=== PATIENT | female | born 1960 | race Caucasian/White ===

== ENCOUNTER 2019-01-18 18:19 | Inpatient (IN) | payer OTHER ==
--- OUTSIDE RECORDS SUMMARY | 2019-01-18 18:21 | XMS REPORT ---
:1960 Author Organization [facility] Address [address] [place] [address] Care Team Providers Name Role Phone Unavailable Unavailable Unavailable Problems This patient has no known problems. Allergies, Adverse Reactions, Alerts This patient has no known allergies or adverse reactions. Medications This patient has no known medications. Results Test Description Test Time Test Comments Text Results Atomic Results Result Comments RAD, KNEE, 1 OR 2018-11-01 22:08:00 Reason for FINAL REPORT PATIENT ID: 2 VIEWS, RIGHT Exam:->chronic pain of [id number] RAD, KNEE, 1 OR right knee 2 VIEWS, RIGHT CLINICAL INDICATION: chronic pain of right knee COMPARISON: None FINDINGS: Weight-bearing frontal and lateral views of the right knee were obtained. There are degenerative changes of the right knee as evidenced by tricompartmental joint narrowing, sclerosis and small osteophytes, most pronounced at the medial compartment where there is moderate disease. There are mild degenerative changes of the lateral and patellofemoral compartments. There is no acute fracture or dislocation. There is a small suprapatellar effusion. IMPRESSION:Degenerative changes of the right knee without acute fracture or dislocation.Small suprapatellar effusion. Signed: Nkechi James MDReport Verified Date/Time: 11/01/2018 22:08:40 Reading Location: [facility] B1 C013Y CT Body Reading Room , HIP, 2 2018-11-01 22:05:00 Weight bearing FINAL REPORT PATIENT ID: VIEWS, RIGHT viewsReason for [id number] RAD, HIP, 2 Exam:->right hip pain VIEWS, RIGHT CLINICAL INDICATION: right hip pain COMPARISON: None FINDINGS: Weightbearing frontal and frog leg lateral views of the right hip were obtained There is no acute fracture or dislocation. The joint spaces are maintained. The right sacroiliac joint is patent. The sacrum is partially obscured by overlying stool and bowel gas. There are post vertebroplasty changes at L4. There is lower lumbar facet arthropathy. IMPRESSION: No acute right hip fracture or dislocation. Signed: Nkechi James Verified Date/Time: 11/01/2018 22:05:04 Reading Location: [facility] C013Y CT Body Reading Room , SPINE, 2018-11-01 22:03:00 Reason for FINAL REPORT PATIENT ID: LUMBAR, 2 OR 3 Exam:->lumbar spine [id number] RAD, SPINE, VIEWS pain LUMBAR, 2 OR 3 VIEWS CLINICAL INDICATION: lumbar spine pain COMPARISON: None FINDINGS: Frontal, lateral and coned-down lateral views of the lumbar spine were obtained. There is generalized osteopenia. There are mild compression fractures of the L2 and L4 vertebral bodies with post vertebroplasty changes. There is a mild chronic compression fracture deformity of the L1 vertebral body involving the inferior endplate. There is a mild age-indeterminate compression fracture deformity of L5 involving the superior endplate. Vertebral body alignment is maintained. There is mild multilevel degenerative disc disease as evidenced by disc space narrowing, small osteophytes and endplate sclerosis most pronounced at L1/L2 and L3/L4. There is lower lumbar facet arthropathy. The bilateral sacroiliac joints are patent. The sacrum is partially obscured by overlying stool and bowel gas. IMPRESSION: Status post L2 and L4 vertebroplasty.Mild chronic compression fracture deformity of L1.Mild age-indeterminate compression fracture deformity of L5 . Correlate with site of pain. Bone scan or MRI may be performed for evaluation as clinically warranted.Degenerative changes as described. Signed: Nkechi Jamesort Verified Date/Time: 11/01/2018 22:03:50 Reading Location: [facility] C013Y CT Body Reading Room
--- OUTSIDE RECORDS SUMMARY | 2019-01-18 18:21 | XMS REPORT | Clinical Summary ---
:1960 Author Organization [facility] Address [address] [place] [address] Care Team Providers Name Role Phone Unavailable Primary Care Provider Unavailable Allergies Not on File Medications Not on file Active Problems Not on file Encounters Date Type Specialty Care Team Description 11/01/2018 Hospital Encounter Radiology Jose Sheth MD Lumbar spine pain 11/01/2018 Hospital Encounter Radiology Jose Sheth MD Right hip pain 11/01/2018 Hospital Encounter Radiology Jose Sheth MD Chronic pain of right knee 11/01/2018 Outside Orders Central Scheduling oJse Sheth MD Right hip pain (Primary Dx); Chronic pain of right knee; Lumbar spine pain after 01/17/2018 Social History Tobacco Use Types Packs/Day Years Used Date Never Assessed Sex Assigned at Date Recorded Not on file Job Start Date Occupation Industry Not on file Not on file Not on file Travel History Travel Start Travel End No recent travel history available. Last Filed Vital Signs Not on file Plan of Treatment Not on file Procedures Procedure Name Priority Date/Time Associated Diagnosis Comments XR SPINE LUMBER 2 STAT 11/01/2018 5:45 PM Lumbar spine pain Results for this OR 3 VIEWS CDT procedure are in the results section. XR HIP RIGHT 2 VIEW STAT 11/01/2018 5:45 PM Right hip pain Results for this CDT procedure are in the results section. XR KNEE RIGHT 1 OR STAT 11/01/2018 5:45 PM Chronic pain of Results for this 2 VIEWS CDT right knee procedure are in the results section. after 01/17/2018 Results XR knee 1 or 2 views right (11/01/2018 5:45 PM CDT) Specimen Narrative Performed At FINAL REPORT [facility] RAD, KNEE, 1 OR 2 VIEWS, RIGHT CLINICAL INDICATION:chronic pain of right knee COMPARISON: None FINDINGS: [...] dislocation. There is a small suprapatellar effusion. IMPRESSION: Degenerative changes of the right knee without acute fracture or dislocation. Small suprapatellar effusion. Signed: Nkechi Ramos MD Report Verified Date/Time:11/01/2018 22:08:40 Reading Location: [facility] C013Y CT Body Reading Room Procedure Note Interface, External Ris In - 11/01/2018 10:10 PM CDT FINAL REPORT RAD, KNEE, 1 OR 2 VIEWS, RIGHT CLINICAL INDICATION: chronic pain [...] dislocation. There is a small suprapatellar effusion. IMPRESSION: Degenerative changes of the right knee without acute fracture or dislocation. Small suprapatellar effusion. Signed: Nkechi Ramos MD Report Verified Date/Time: 11/01/2018 22:08:40 Reading Location: [facility] C013Y CT Body Reading Room Performing Organization Address City/State/Zipcode Phone Number [employer] XR hip 2 views right (11/01/2018 5:45 PM CDT) Specimen Narrative Performed At FINAL REPORT [employer] [facility] RAD, HIP, 2 VIEWS, RIGHT CLINICAL INDICATION:right hip pain COMPARISON: None FINDINGS: Weightbearing frontal [...] right hip fracture or dislocation. Signed: Nkechi Ramos MD Report Verified Date/Time:11/01/2018 22:05:04 Reading Location: [facility] C013Y CT Body Reading Room Procedure Note Interface, External Ris In - 11/01/2018 10:07 PM CDT FINAL REPORT RAD, HIP, 2 VIEWS, RIGHT CLINICAL INDICATION: right hip pain [...] right hip fracture or dislocation. Signed: Nkechi Ramos MD Report Verified Date/Time: 11/01/2018 22:05:04 Reading Location: [facility] C013Y CT Body Reading Room Performing Organization Address City/State/Zipcode Phone Number [employer] XR spine lumbar 2 or 3 views (11/01/2018 5:45 PM CDT) Specimen Narrative Performed At FINAL REPORT [facility] RAD, SPINE, LUMBAR, 2 OR 3 VIEWS CLINICAL INDICATION:lumbar spine pain COMPARISON: None FINDINGS: Frontal, lateral [...] gas. IMPRESSION: Status post L2 and L4 vertebroplasty. Mild chronic compression fracture deformity of L1. Mild age-indeterminate compression fracture deformity of L5 . Correlate with site of pain. Bone scan or MRI may be performed for evaluation as clinically warranted. Degenerative changes as described. Signed: Nkechi Ramos MD Report Verified Date/Time:11/01/2018 22:03:50 Reading Location: [facility] B1 C013Y CT Body Reading Room Procedure Note Interface, External Ris In - 11/01/2018 10:05 PM CDT FINAL REPORT RAD, SPINE, LUMBAR, 2 OR 3 VIEWS CLINICAL INDICATION: [...] gas. IMPRESSION: Status post L2 and L4 vertebroplasty. Mild chronic compression fracture deformity of L1. Mild age-indeterminate compression fracture deformity of L5 . Correlate with site of pain. Bone scan or MRI may be performed for evaluation as clinically warranted. Degenerative changes as described. Signed: Nkechi Ramos MD Report Verified Date/Time: 11/01/2018 22:03:50 Reading Location: [facility] B1 C013Y CT Body Reading Room Performing Organization Address City/State/Zipcode Phone Number GE RIS after 01/17/2018 Insurance Payer Benefit Plan / Group Subscriber ID Type Phone Address [employer] - [employer] HMO POS QPOS xxxxxxxxxx HMO/POS
[2019-01-18] MEDS ORDERED: ACETAMINOPHEN 500 MG TAB ONE (19:09)
[2019-01-18] MEDS ORDERED: NA CHLORIDE 0.9% 2,000 ML ONE (19:09)
--- NOTE | 2019-01-18 19:20 | RAD REPORT ---
EXAM DESCRIPTION: Freda Single View01/18/2019 7:12 pm CLINICAL HISTORY: fever COMPARISON: September 2018 FINDINGS: A few areas of subsegmental atelectasis or scarring are present within the left lung base. The right lung appears clear of acute infiltrate Lungs are hyperaerated. Heart is normal size
[2019-01-18] MEDS ORDERED: CEFTRIAXONE/SWI 1gm 1 GM/10 ML SYR ONE ×2 (19:25→20:58)
[2019-01-18] MEDS ORDERED: ONDANSETRON 4 MG/2 ML VIAL ONE (19:25)
[2019-01-18 19:29] LABS: Protime INR 1.23
[2019-01-18 19:31] LABS: Absolute Lymphocytes (CBC) 0.8 K/uL (0.7-4.9); Basophils % 0.2 % (0-1.3); Hematocrit 41.4 % (36.0-45.0); Lymphocytes % 5.1 % (15.3-44.8); MPV 9.1 fL (7.6-11.3); RBC Red Blood Cell Count 4.61 M/uL (3.86-4.86)
[2019-01-18 19:43] LABS: ALT/SGPT 28 U/L (12-78); AST/SGOT 18 U/L (15-37); Albumin 3.9 g/dL (3.4-5.0); Alkaline Phosphatase 65 U/L (45-117); BUN Blood Urea Nitrogen 16 mg/dL (7-18); Bicarbonate 23 mmol/L (21-32); Bilirubin Direct 0.2 mg/dL (0-0.2); Bilirubin Total 1.4 mg/dL (0.2-1.0); Glucose Level 123 mg/dL (74-106); Potassium 3.6 mmol/L (3.5-5.1); Protein, Total 7.7 g/dL (6.4-8.2); Sodium Level 134 mmol/L (136-145); Troponin (Emerg Dept Use Only) < 0.02 ng/mL (0.0-0.045)
[2019-01-18 20:12] LABS: Blood Morphology Comment NOT SEEN (NOT SEEN); Platelet Estimate ADEQ; Urine White Blood Cell Casts OK
[2019-01-18 20:19] LABS: Urine Blood TRACE (NEG); Urine Glucose NEGATIVE (NEG); Urine Protein 3+ (NEG); Urine Specific Gravity >1.030 (1.005-1.030); Urine pH 5.5 (5.0-7.0)
[2019-01-18 20:21] LABS: Urine Bacteria 20-50 /HPF (<20); Urine RBC <5 /HPF (NONE SEEN)
[2019-01-18 20:22] LABS: Urine Amorphous Sediment 1+ /HPF (NONE SEEN); Urine Culture Reflex Order REFLEXED; Urine Mucus 2+ /HPF (NONE SEEN)
--- NOTE | 2019-01-18 20:47 | RAD REPORT ---
EXAM DESCRIPTION: CT - Abdomen Pelvis W Contrast - 01/18/2019 8:30 pm CLINICAL HISTORY: Abdominal pain/breast cancer/sepsis. COMPARISON: 2012 TECHNIQUE: Computed axial tomography of the abdomen pelvis was obtained. 100 cc Isovue-300 was admin istered intravenously. Oral contrast was not requested which limits evaluation of bowel. All CT scans are performed using dose optimization technique as appropriate and may include automated exposure control or mA/KV adjustment according to patient size. FINDINGS: The liver, spleen, pancreas, adrenal and right kidney appear unremarkable. Cortical thinning involves the left kidney. In addition several low-density areas are present within the left kidney reaching the periphery. Stranding is present within the left perirenal fat as well as the left anterior pararenal space. There is no evidence of diverticulitis. Normal appendix Gastric diverticulum. Cement has been placed into 2 old lumbar vertebral fractures. IMPRESSION: Mild to moderate low-density areas within the left kidney reaching the periphery may ind icate pyelonephritis.
--- NOTE | 2019-01-18 21:23 | ER ---
Nurse's Notes [facility] Name: Evita Sehlley Age: 58 yrs Sex: Female : 1960 Arrival Date: 01/18/2019 Time: 18:22 Bed 6 Private MD: Diagnosis: Urinary tract infection, site not specified;Urosepsis ;Acute tubulo-interstitial nephritis Presentation: 01/18 18:42 Presenting complaint: Headache, nausea, body aches x 2 days, vomit x 1 yesterday. hb Transition of care: patient was not received from another setting of care. Onset of symptoms was January 17, 2019. Risk Assessment: Do you want to hurt yourself or someone else? Patient reports no desire to harm self or others. Initial Sepsis Screen: Does the patient meet any 2 criteria? Temp <36.0*C (96.8*F)) or > 38.3*C (100.9*F). HR > 90 bpm. Yes Does the patient have a suspected source of infection? No. Patient's initial sepsis screen is negative. Care prior to arrival: None. 18:42 Method Of Arrival: Ambulatory hb 18:42 Acuity: KIP 3 hb Triage Assessment: 18:47 General: Appears in no apparent distress. uncomfortable, Behavior is calm, cooperative, hj appropriate for age. Pain: Denies pain. Historical: - Allergies: 18:45 No Known Allergies; hb - Home Meds: 18:45 None [Active]; hb - PMHx: 18:45 None; hb - PSHx: 18:45 lumpectomy - right; hb - Immunization history:: Adult Immunizations up to date. - Social history:: Smoking status: Patient/guardian denies using tobacco. - Ebola Screening: : No symptoms or risks identified at this time. Screenin:46 Abuse screen: Denies threats or abuse. Denies injuries from another. Nutritional hb screening: No deficits noted. Tuberculosis screening: No symptoms or risk factors identified. Fall Risk None identified. Assessment: 18:48 General: Appears in no apparent distress. uncomfortable, Behavior is calm, cooperative, hj appropriate for age. 18:48 Pain: Complains of pain in body. Neuro: Level of Consciousness is awake, alert, obeys hj commands, Oriented to person, place, time, situation, Appropriate for age. Cardiovascular: Capillary refill < 3 seconds Patient's skin is warm and dry. Respiratory: Airway is patent Respiratory effort is even, unlabored, Respiratory pattern is regular, symmetrical. GI: No signs and/or symptoms were reported involving the gastrointestinal system. : No signs and/or symptoms were reported regarding the genitourinary system. EENT: No signs and/or symptoms were reported regarding the EENT system. Derm: No signs and/or symptoms reported regarding the dermatologic system. Musculoskeletal: Reports pain in body. 19:27 General: Appears uncomfortable, Behavior is calm, cooperative, appropriate for age. ea Pain: Denies pain. Neuro: Level of Consciousness is awake, alert, obeys commands, Oriented to person, place, time, situation. Cardiovascular: Patient's skin is warm and dry. 19:27 General: Pt reports she has been feeling achy. Respiratory: Breath sounds are clear ea bilaterally. GI: Abdomen is non-distended, Bowel sounds present X 4 quads. : Parent/caregiver report the patient having urinary frequency pt reports she is only able to urinate very little every time she goes. Derm: Skin is clammy, Skin is pale, Skin temperature is warm. Musculoskeletal: Circulation, motion, and sensation intact. 20:50 Reassessment: Patient and/or family updated on plan of care and expected duration. Pain ea level reassessed. Pt alert and oriented x 4, respirations even and unlabored. Chest expansions even and symmetrical. Denies pain at this time. 21:30 Reassessment: Patient and/or family updated on plan of care and expected duration. Pain ea level reassessed. Patient is alert, oriented x 3, equal unlabored respirations, skin warm/dry/pink. 23:04 Reassessment: pt resting quietly resp even and unlabored, arouses easily, A\T\O x 4, IV bb site intact, patent with fluids infusing pt states she is feeling a little better. Vital Signs: 18:42 BP 112 / 82; Pulse 119; Resp 16; Temp 101.1(TE); Pulse Ox 96% on R/A; Weight 95.25 kg hj (R); Height 5 ft. 7 in. (170.18 cm); Pain 10/10; 18:49 BP 107 / 73; Pulse 112; Resp 18; Pulse Ox 94% on R/A; hj 19:27 BP 94 / 66; Pulse 98; Resp 22; Temp 100.1; Pulse Ox 95% ; ea 20:08 BP 98 / 64; Pulse 90; Resp 22; Pulse Ox 95% ; ea 20:52 BP 89 / 67; Pulse 85; Resp 20; Temp 98.7(O); Pulse Ox 95% on R/A; ea 22:07 BP 93 / 66; Pulse 81; Resp 18; Pulse Ox 98% on R/A; ea 23:03 BP 91 / 72; Pulse 84; Resp 18 S; Temp 97.6(O); Pulse Ox 97% on R/A; bb 18:42 Body Mass Index 32.89 (95.25 kg, 170.18 cm) ED Course: 18:22 Patient arrived in ED. mr 18:36 Rodriguez Alexander PA is PHCP. jr8 18:36 Harish Diggs MD is Attending Physician. jr8 18:45 Triage completed. hb 18:45 Arm band placed on. hb 18:46 Magnus Woodard, RN is Primary Nurse. hj 18:46 Patient has correct armband on for positive identification. Placed in gown. Bed in low hb position. Call light in reach. Side rails up X 1. child monitor on. Pulse ox on. NIBP on. 18:47 Initial lab(s) drawn, by me. Inserted saline lock: 20 gauge in right antecubital area, hj using aseptic technique. Blood collected. 19:10 Chest Single View XRAY In Process Unspecified. EDMS 20:05 Straight cath inserted, using sterile technique, 14 Fr. Returned carlos urine. Patient ea tolerated well. 20:27 CT completed. Patient tolerated procedure well. Patient moved back from CT. bq 20:30 CT Abd/Pelvis - IV Contrast Only In Process Unspecified. EDMS 20:51 No provider procedures requiring assistance completed. ea 21:22 Kelly Gilliam MD is Hospitalizing Provider. jr8 23:09 Patient admitted, IV remains in place. bb 23:10 Attending Physician role handed off by Harish Diggs MD bb 23:23 Kelly Gilliam MD is Attending Physician. bb Administered Medications: 18:49 Drug: Acetaminophen 1000 mg Route: PO; ea 20:00 Follow up: Response: No adverse reaction; Temperature is decreased ea 19:18 Drug: NS 0.9% (30 ml/kg) 30 ml/kg Route: IV; Rate: bolus; Site: right antecubital; ea 21:00 Follow up: Response: No adverse reaction; IV Status: Completed infusion; IV Intake: ea 3000ml 19:18 Drug: Zofran 4 mg Route: IVP; Site: right antecubital; ea 20:00 Follow up: Response: No adverse reaction ea 20:00 Drug: Rocephin 1 grams Route: IV; Rate: calculated rate; Site: right antecubital; ea 20:55 Follow up: Response: No adverse reaction; IV Status: Completed infusion; IV Intake: 10mlea 20:50 Drug: Rocephin 1 grams Route: IV; Rate: 1 calculated rate; Site: right antecubital; ea 20:55 Follow up: Response: No adverse reaction; IV Status: Completed infusion; IV Intake: 10mlea Point of Care Testing: Blood Glucose: 19:27 Blood Glucose: 135 mg/dL; ea Ranges: Intake: 20:55 IV: 10ml; Total: 10ml. ea 20:55 IV: 10ml; Total: 20ml. ea 21:00 IV: 3000ml; Total: 3020ml. ea Outcome: 21:23 Decision to Hospitalize by Provider. jrMario 23:09 Admitted to ICU accompanied by nurse, via stretcher, room ICU 1, on monitor, with bb chart, Report called to Brittaney LUZ 23:09 Condition: stable 23:09 Instructed on the need for admit. 23:10 Patient left the ED. bb 23:23 Patient left the ED. bb Signatures: Dispatcher [employer] BAIRONNV Deon Jess LlamasChandni Brenda, RN RN Rodriguez Quintero PA PA jr8 Magnus Woodard RN RN hj Baxter, Heather, RN RN hb Antunez, Elena, RN RN ea Corrections: (The following items were deleted from the chart) 18:50 18:42 BP 112 / 82; Pulse 119bpm; Resp 16bpm; Pulse Ox 96% RA; Temp 101.1F Temporal; hj Pain 10/10; hb
--- NOTE | 2019-01-18 21:24 | EDPHYS ---
Physician Documentation [facility] Name: Evita Shelley Age: 58 yrs Sex: Female : 1960 Arrival Date: 01/18/2019 Time: 18:22 Bed 6 Private MD: ED Physician Kelly Gilliam HPI: 01/18 19:26 This 58 yrs old Female presents to ER via Ambulatory with complaints of Fever.jr8 19:26 The patient reports fever, that was measured at 103 degrees Fahrenheit, with an jr8 emergency department temperature of 101.1 degrees Fahrenheit. Onset: The symptoms/episode began/occurred acutely, yesterday. Modifying factors: Recent medications: acetaminophen, 7 hours ago. unaware of sick contact. Associated signs and symptoms: Pertinent positives: decreased appetite, headache, myalgias, nausea, vomiting, Pertinent negatives: abdominal pain, chest pain, cough, diarrhea, hemoptysis, night sweats, skin rash, shortness of breath, sore throat. Severity of symptoms: At their worst the symptoms were moderate in the emergency department the symptoms are unchanged. The patient has not experienced similar symptoms in the past. The patient has not recently seen a physician. Fever, headache, generalized weakness, body aches onset yesterday. Vomiting x 1 episode yesterday, nausea today but no further episodes of vomiting. Also reports frequent urination and mild dysuria. Historical: - Allergies: 18:45 No Known Allergies; hb - Home Meds: 18:45 None [Active]; hb - PMHx: 18:45 None; hb - PSHx: 18:45 lumpectomy - right; hb - Immunization history:: Adult Immunizations up to date. - Social history:: Smoking status: Patient/guardian denies using tobacco. - Ebola Screening: : No symptoms or risks identified at this time. ROS: 19:26 Eyes: Negative for injury, pain, redness, and discharge, ENT: Negative for injury, jr8 pain, and discharge, Neck: Negative for injury, pain, and swelling, Cardiovascular: Negative for chest pain, palpitations, and edema, Respiratory: Negative for shortness of breath, cough, wheezing, and pleuritic chest pain, Back: Negative for injury and pain, Skin: Negative for injury, rash, and discoloration. 19:26 MS/Extremity: Negative for injury and deformity. 19:26 Constitutional: Positive for body aches, fever, malaise. 19:26 ENT: 19:26 Abdomen/GI: Positive for nausea, vomiting, Negative for abdominal pain, diarrhea. 19:26 MS/extremity: 19:26 Neuro: Positive for headache, Negative for loss of consciousness, weakness. 19:26 : Positive for urinary frequency, burning with urination, Negative for hematuria, jr8 pelvic pain, flank pain, vaginal bleeding, vaginal discharge. Exam: 19:26 Constitutional: This is a well developed, well nourished patient who is awake, alert, jr8 and in no acute distress. Head/Face: Normocephalic, atraumatic. Eyes: Pupils equal round and reactive to light, extra-ocular motions intact. Lids and lashes normal. Conjunctiva and sclera are non-icteric and not injected. Cornea within normal limits. Periorbital areas with no swelling, redness, or edema. Neck: Trachea midline, no thyromegaly or masses palpated, and no cervical lymphadenopathy. Supple, full range of motion without nuchal rigidity, or vertebral point tenderness. No Meningismus. Cardiovascular: Regular rate and rhythm with a normal S1 and S2. No gallops, murmurs, or rubs. Normal PMI, no JVD. No pulse deficits. Respiratory: Lungs have equal breath sounds bilaterally, clear to auscultation and percussion. No rales, rhonchi or wheezes noted. No increased work of breathing, no retractions or nasal flaring. Abdomen/GI: Soft, non-tender, with normal bowel sounds. No distension or tympany. No guarding or rebound. No evidence of tenderness throughout. Back: No spinal tenderness. No costovertebral tenderness. Full range of motion. Skin: Warm, dry with normal turgor. Normal color with no rashes, no lesions, and no evidence of cellulitis. MS/ Extremity: Pulses equal, no cyanosis. Neurovascular intact. Full, normal range of motion. Neuro: Awake and alert, GCS 15, oriented to person, place, time, and situation. Cranial nerves II-XII grossly intact. Motor strength 5/5 in all extremities. Sensory grossly intact. Cerebellar exam normal. Normal gait. 19:26 ENT: External ear(s): are unremarkable, Ear canal(s): are normal, TM's: are normal, Posterior pharynx: is normal, erythema, that is mild. 19:26 Skin: dry mucous membranes. Vital Signs: 18:42 BP 112 / 82; Pulse 119; Resp 16; Temp 101.1(TE); Pulse Ox 96% on R/A; Weight 95.25 kg hj (R); Height 5 ft. 7 in. (170.18 cm); Pain 10/10; 18:49 BP 107 / 73; Pulse 112; Resp 18; Pulse Ox 94% on R/A; hj 19:27 BP 94 / 66; Pulse 98; Resp 22; Temp 100.1; Pulse Ox 95% ; ea 20:08 BP 98 / 64; Pulse 90; Resp 22; Pulse Ox 95% ; ea 20:52 BP 89 / 67; Pulse 85; Resp 20; Temp 98.7(O); Pulse Ox 95% on R/A; ea 22:07 BP 93 / 66; Pulse 81; Resp 18; Pulse Ox 98% on R/A; ea 23:03 BP 91 / 72; Pulse 84; Resp 18 S; Temp 97.6(O); Pulse Ox 97% on R/A; bb 18:42 Body Mass Index 32.89 (95.25 kg, 170.18 cm) MDM: 18:36 Patient medically screened. [facility] 21:23 Data reviewed: vital signs, nurses notes, lab test result(s), EKG, radiologic studies, [facility] CT scan, plain films. Data interpreted: Pulse oximetry: on room air is 95 %. Interpretation: normal. Counseling: I had a detailed discussion with the patient and/or guardian regarding: the historical points, exam findings, and any diagnostic results supporting the discharge/admit diagnosis, lab results, radiology results, the need for further work-up and treatment in the hospital. Physician consultation: Kelly Gilliam MD was called at 21:24, was contacted at 21:24, regarding admission, to the ICU, consult, patient's condition, and will see patient. 01/18 18:49 Order name: Basic Metabolic Panel [facility] 01/18 18:49 Order name: Blood Culture Adult (2) [facility] 01/18 18:49 Order name: CBC with Diff 8 01/18 18:49 Order name: Lactate [facility] 01/18 18:49 Order name: LFT's [facility] 01/18 18:49 Order name: Procalcitonin [facility] 01/18 18:49 Order name: Protime (+inr); Complete Time: 19:37 [facility] 01/18 18:49 Order name: Ptt, Activated; Complete Time: 19:37 [facility] 01/18 18:49 Order name: Troponin (emerg Dept Use Only); Complete Time: 20:07 [facility] 01/18 18:49 Order name: Urine Microscopic Only; Complete Time: 20:31 [facility] 01/18 18:49 Order name: Influenza Screen (a \T\ B); Complete Time: 20:17 [facility] 01/18 18:50 Order name: Basic Metabolic Panel; Complete Time: 20:07 [facility] 01/18 18:50 Order name: Blood Culture [facility] 01/18 18:50 Order name: CBC with Automated Diff; Complete Time: 20:17 [facility] 01/18 18:49 Order name: Chest Single View XRAY; Complete Time: 19:24 [facility] 01/18 18:49 Order name: Accucheck; Complete Time: 20:07 [facility] 01/18 18:49 Order name: Cardiac monitoring; Complete Time: 18:51 [facility] 01/18 18:50 Order name: Lactate; Complete Time: 20:07 [facility] 01/18 18:50 Order name: Liver (Hepatic) Function; Complete Time: 20:07 [facility] 01/18 18:50 Order name: Procalcitonin; Complete Time: 20:07 [facility] 01/18 19:35 Order name: CBC Smear Scan; Complete Time: 20:17 [facility] 01/18 20:08 Order name: CT Abd/Pelvis - IV Contrast Only; Complete Time: 20:49 [facility] 01/18 20:15 Order name: Urine Dipstick--Ancillary (enter results); Complete Time: 20:20 [facility] 01/18 20:23 Order name: Urine Culture [facility] 01/18 21:49 Order name: NPO [facility] 01/18 18:49 Order name: EKG - Nurse/Tech; Complete Time: 19:06 [facility] 01/18 18:49 Order name: IV Saline Lock - Large Bore; Complete Time: 18:51 [facility] 01/18 18:49 Order name: Labs collected and sent; Complete Time: 19:05 [facility] 01/18 18:49 Order name: O2 Per Protocol; Complete Time: 18:51 [facility] 01/18 18:49 Order name: O2 Sat Monitoring; Complete Time: 18:51 01/18 18:49 Order name: Urine Dipstick-Ancillary (obtain specimen); Complete Time: 20:20 [facility] 01/18 20:19 Order name: Straight Cath; Complete Time: 20:19 ea Administered Medications: 18:49 Drug: Acetaminophen 1000 mg Route: PO; ea 20:00 Follow up: Response: No adverse reaction; Temperature is decreased ea 19:18 Drug: NS 0.9% (30 ml/kg) 30 ml/kg Route: IV; Rate: bolus; Site: right antecubital; ea 21:00 Follow up: Response: No adverse reaction; IV Status: Completed infusion; IV Intake: ea 3000ml 19:18 Drug: Zofran 4 mg Route: IVP; Site: right antecubital; ea 20:00 Follow up: Response: No adverse reaction ea 20:00 Drug: Rocephin 1 grams Route: IV; Rate: calculated rate; Site: right antecubital; ea 20:55 Follow up: Response: No adverse reaction; IV Status: Completed infusion; IV Intake: 10mlea 20:50 Drug: Rocephin 1 grams Route: IV; Rate: 1 calculated rate; Site: right antecubital; ea 20:55 Follow up: Response: No adverse reaction; IV Status: Completed infusion; IV Intake: 10mlea Point of Care Testing: Blood Glucose: 19:27 Blood Glucose: 135 mg/dL; ea Ranges: Critical Glucose Levels:Adult <50 mg/dl or >400 mg/dl <40 mg/dl or >180 mg/dl Disposition: 01/19 07:20 Co-signature as Attending Physician, Rodriguez mrelos Disposition: 01/18/19 21:23 Hospitalization ordered for Inpatient Admission. Preliminary diagnosis are Urinary tract infection, site not specified, Urosepsis , Acute tubulo-interstitial nephritis. - Bed requested for Intensive Care Unit. - Status is Inpatient Admission. bb - Condition is Fair. - Problem is new. - Symptoms have improved. UTI on Admission? Yes Signatures: Dispatcher [employer] Danii Santana RN RN dw Ballard, Brenda, RN RN bb Roszak, Rodriguez, PA PA jr8 Anamaria Mendoza RN RN Naomie Jansen RN RN ea Starr, Gregory, MD MD gs Corrections: (The following items were deleted from the chart) 01/18 19:33 19:26 Constitutional: Positive for body aches, fever, malaise, jr8 jr8 21:23 21:23 Hospitalization Ordered by Kelly Gilliam MD for Inpatient Admission. Preliminary jr8 diagnosis is Urinary tract infection, site not specified; Urosepsis . Bed requested for Intensive Care Unit. Status is Inpatient Admission. Condition is Fair. Problem is new. Symptoms have improved. UTI on Admission? Yes. [facility] 21:59 21:23 01/18/2019 21:23 Hospitalization Ordered by Kelly Gilliam MD for Inpatient dw Admission. Preliminary diagnosis is Urinary tract infection, site not specified; Urosepsis ; Acute tubulo-interstitial nephritis. Bed requested for Intensive Care Unit. Status is Inpatient Admission. Condition is Fair. Problem is new. Symptoms have improved. UTI on Admission? Yes. [facility] 23:10 21:59 01/18/2019 21:23 Hospitalization Ordered by Kelly Gilliam MD for Inpatient bb Admission. Preliminary diagnosis is Urinary tract infection, site not specified; Urosepsis ; Acute tubulo-interstitial nephritis. Bed requested for Intensive Care Unit. Status is Inpatient Admission. Condition is Fair. Problem is new. Symptoms have improved. UTI on Admission? Yes. 23:22 23:10 01/18/2019 21:23 Hospitalization Ordered by Kelly Gilliam MD for Inpatient bb Admission. Preliminary diagnosis is Urinary tract infection, site not specified; Urosepsis ; Acute tubulo-interstitial nephritis. Bed requested for Intensive Care Unit. Status is Inpatient Admission. Condition is Fair. Problem is new. Symptoms have improved. UTI on Admission? Yes. bb 23:23 23:22 01/18/2019 21:23 Hospitalization Ordered by Kelly Gilliam MD for Inpatient bb Admission. Preliminary diagnosis is Urinary tract infection, site not specified; Urosepsis ; Acute tubulo-interstitial nephritis. Bed requested for Intensive Care Unit. Status is Inpatient Admission. Condition is Fair. Problem is new. Symptoms have improved. UTI on Admission? Yes. bb
[2019-01-18] MEDS ORDERED: NA CHLORIDE 0.9% 1,000 ML ONE (21:30)
[2019-01-18] MEDS ORDERED: ONDANSETRON 4 MG/2 ML VIAL IV PRN (21:39)
[2019-01-18] MEDS ORDERED: ALPRAZOLAM 0.25 MG TABLET PO PRN (21:39)
[2019-01-18] MEDS ORDERED: MAGNESIUM HYDROXIDE 8% 30 ML PO PRN (21:39)
[2019-01-18] MEDS ORDERED: CEFTRIAXONE/SWI 1gm 1 GM/10 ML SYR IV SCH (23:00)
[2019-01-19] MEDS: Levofloxacin500mg IV 500 MG/100 ML BAG IV SCH ×2 (00:05→21:09)
[2019-01-19] MEDS: NA CHLORIDE 0.9% 1,000 ML IV SCH ×3 (00:05→18:00)
[2019-01-19] MEDS: IPRATROPIUM BROM 0.5MG/2.5ML NEB SCH ×4 (01:58→20:00)
[2019-01-19] MEDS: ALBUTEROL 2.5 MG/3 ML NEB SOL NEB SCH ×4 (01:58→20:00)
[2019-01-19] MEDS: ACETAMINOPHEN 500 MG TAB PO PRN ×3 (03:29→19:57)
[2019-01-19 05:57] LABS: Absolute Lymphocytes (CBC) 0.8 K/uL (0.7-4.9); Basophils % 0.3 % (0-1.3); Hematocrit 33.9 % (36.0-45.0); Lymphocytes % 6.4 % (15.3-44.8); MPV 8.7 fL (7.6-11.3); RBC Red Blood Cell Count 3.76 M/uL (3.86-4.86)
[2019-01-19 06:16] LABS: Bilirubin Total 0.9 mg/dL (0.2-1.0); Magnesium 1.8 mg/dL (1.8-2.4); Phosphorus 1.7 mg/dL (2.5-4.9); Potassium 3.3 mmol/L (3.5-5.1)
--- NOTE | 2019-01-19 06:18 | P.HP ---
Date of Service: 01/18/19 Certification for Inpatient Patient admitted to: Inpatient With expected LOS: >2 Midnights Patient will require the following post-hospital care: None Practitioner: I am a practitioner with admitting privileges, knowledge of patient current condition, hospital course, and medical plan of care. Services: Services provided to patient in accordance with Admission requirements found in Title 42 Section 412.3 of the Code of Federal Regulations Patient History Date of Service: 01/18/19 Reason for admission: Pyelonephritis with septic shock History of Present Illness: Patient is a 58-year-old female came into the hospital with flank tenderness. Patient has been feeling well for the last 2-3 days. Her symptoms have gradually worsened. She was having generalized weakness along with fever of 103 that she measured at home. Patient has some nausea and vomiting as well. Patient complained of myalgias and anorexia. Patient does state that she has had some dysuria and polyuria. Patient came into the ER for further evaluation. In the emergency room patients workup was fairly unremarkable. Her urin analysis was not significant for pyuria. Patient did have bacteriuria. Patient's CT scan revealed pyelonephritis. Patient was hypotensive in the emergency room with blood pressure of 70s over 40s. When I came to see the patient, her blood pressure was 80s over 50s. Patient was tachycardic. Will continue fluid boluses and treatment for septic shock. Patient will be admitted to the ICU. If patient's headache continues patient may need further neurologic workup as well. Allergies No Known Allergies Allergy (Verified 01/18/19 22:22) Home Medications: Glucosamine Sulfate 1,000 mg PO BID 01/19/19 Meloxicam 15 mg PO PRN PRN 01/19/19 - Past Medical/Surgical History Has patient received pneumonia vaccine in the past: No Diabetic: No -: right breast cancer -: right lumpectomy - Family History Mother Medical History: Cancer Father Medical History: Diabetes - Social History Smoking Status: Current every day smoker Alcohol use: Yes CD- Drugs: No Caffeine use: Yes Place of Residence: Home Review of Systems 10-point ROS is otherwise unremarkable (No meningeal signs) Physical Examination - Vital Signs Temperature: 98.8 F Blood Pressure: 111/57 Pulse: 91 Respirations: 24 Pulse Ox (%): 96 - Physical Exam General: Alert, In no apparent distress, Oriented x3 HEENT: Atraumatic, PERRLA, Mucous membr. moist/pink, EOMI, Sclerae nonicteric Neck: Supple, 2+ carotid pulse no bruit, No LAD, Without JVD or thyroid abnormality Respiratory: Clear to auscultation bilaterally, Normal air movement Cardiovascular: Regular rate/rhythm, Normal S1 S2, No murmurs Gastrointestinal: Normal bowel sounds, Soft and benign, Non-distended, Tenderness (Mild flank tenderness) Musculoskeletal: No clubbing, No swelling, No tenderness Integumentary: No rashes Neurological: Normal gait, Normal speech, Normal strength at 5/5 x4 extr, Normal tone, Sensation intact, Cranial nerves 3-12 intact, Normal affect Lymphatics: No axilla or inguinal lymphadenopathy - Studies Laboratory Data (last 24 hrs) 01/18/19 18:48: PT 14.4 H, INR 1.23, APTT 28.9 01/18/19 18:48: WBC 16.4 H, Hgb 14.0, Hct 41.4, Plt Count 176 01/18/19 18:48: Sodium 134 L, Potassium 3.6, BUN 16, Creatinine 1.01, Glucose 123 H, Total Bilirubin 1.4 H, AST 18, ALT 28, Alkaline Phosphatase 65 Microbiology Data (last 24 hrs): 01/18/19 19:28 Nasopharnyx Influenza Type A Antigen Screen - Final 01/18/19 19:28 Nasopharnyx Influenza Type B Antigen Screen - Final Assessment & Plan - Problems (Diagnosis) (1) Pyelonephritis Current Visit: Yes Status: Acute (2) Septic shock Current Visit: Yes Status: Acute - Plan Plan: 1. Aggressive IV hydration 2. IV antibiotics 3. Repeat lactic acid level 4. Procalcitonin level 5. Monitor her neurologic symptoms 6. If hemodynamically stabilizes and patient may be able to go to general medical floor 7. Strict hemodynamic monitoring and neurologic assessments 8. GI and DVT prophylaxis Discharge Plan: Home Plan to discharge in: Greater than 2 days - Advance Directives Does patient have a Living Will: No Does patient have a Durable POA for Healthcare: No - Code Status/Comfort Care Code Status Assessed: Yes Code Status: Full Code Critical Care: Yes Time Spent Managing PTS Care (In Minutes): 50
[2019-01-19] MEDS ORDERED: POTASSIUM PHOS IN 0.9 % NACL 15 MMOL/250 ML BAG IV ONE (07:00)
[2019-01-19] MEDS ORDERED: MAGNESIUM SULFATE 1 gm IVPB 1 GM/100 ML BAG IV ONE (07:00)
[2019-01-19] MEDS ORDERED: POTASSIUM 25 MEQ EFFERV TAB PO ONE (09:00)
[2019-01-19] MEDS: ENOXAPARIN 40 MG/0.4 ML SQ SCH (09:13)
[2019-01-19] MEDS: CEFTRIAXONE/SWI 1gm 1 GM/10 ML SYR IV SCH ×2 (09:14→21:09)
--- NOTE | 2019-01-19 13:20 | P.PN ---
Subjective Date of Service: 01/19/19 Chief Complaint: Pyelonephritis with septic shock Subjective: No C/O voiced, Tolerating diet, Ambulating, Improving, Working w/ PT , Doing well Review of Systems 10-point ROS is otherwise unremarkable Physical Examination - Vital Signs Temperature: 98.8 F Blood Pressure: 103/66 Pulse: 88 Respirations: 14 Pulse Ox (%): 98 - Physical Exam General: Alert, In no apparent distress HEENT: Atraumatic, PERRLA, EOMI Neck: Supple, JVD not distended Respiratory: Clear to auscultation bilaterally, Normal air movement Cardiovascular: Regular rate/rhythm, Normal S1 S2 Gastrointestinal: Normal bowel sounds, No tenderness Musculoskeletal: No tenderness Integumentary: No rashes Neurological: Normal speech, Normal tone, Normal affect Lymphatics: No axilla or inguinal lymphadenopathy - Studies Laboratory Data (last 24 hrs) 01/18/19 18:48: PT 14.4 H, INR 1.23, APTT 28.9 01/18/19 18:48: WBC 16.4 H, Hgb 14.0, Hct 41.4, Plt Count 176 01/18/19 18:48: Sodium 134 L, Potassium 3.6, BUN 16, Creatinine 1.01, Glucose 123 H, Total Bilirubin 1.4 H, AST 18, ALT 28, Alkaline Phosphatase 65 Microbiology Data (last 24 hrs): 01/18/19 19:28 Nasopharnyx Influenza Type A Antigen Screen - Final 01/18/19 19:28 Nasopharnyx Influenza Type B Antigen Screen - Final Medications List Reviewed: Yes Assessment And Plan - Current Problems (Diagnosis) (1) Septic shock Current Visit: Yes Status: Resolved Plan: Septic shock now resolved most likely secondary to pyelonephritis hemodynamically stable -will continue with IV antibiotics and IV fluids here in the hospital -blood culture urine culture pending at this time will follow up with result (2) Pyelonephritis Current Visit: Yes Status: Acute Plan: Patient with flank pain with abdominal CT consistent with pyelonephritis -UA concerning for UTI -currently on IV antibiotics will continue that here in the hospital -blood culture and urine culture pending at this time will follow up -patient improving this morning Discharge Plan: Home Plan to discharge in: Greater than 2 days - Code Status/Comfort Care Code Status Assessed: Yes Critical Care: No
[2019-01-19] MEDS ORDERED: TRAMADOL HCL 50 MG TAB PO ONE (14:41)
[2019-01-19 19:18] LABS: Magnesium 2.2 mg/dL (1.8-2.4); Phosphorus 1.5 mg/dL (2.5-4.9)
[2019-01-19] MEDS ORDERED: ACETAMIN/CAFFEINE/BUTALB TAB PO ONE (21:38)
[2019-01-20] MEDS: IPRATROPIUM BROM 0.5MG/2.5ML NEB SCH ×3 (02:00→15:10)
[2019-01-20] MEDS: ALBUTEROL 2.5 MG/3 ML NEB SOL NEB SCH ×3 (02:00→15:10)
[2019-01-20] MEDS: NA CHLORIDE 0.9% 1,000 ML IV SCH ×2 (02:45→04:00)
[2019-01-20] MEDS: CEFTRIAXONE/SWI 1gm 1 GM/10 ML SYR IV SCH (08:18)
[2019-01-20] MEDS: ENOXAPARIN 40 MG/0.4 ML SQ SCH (08:18)
[2019-01-20] MEDS: POTASS/SODIUM PHOSPHATE 1 PKT POWD.PACK PO SCH ×3 (09:00→11:03)
--- NOTE | 2019-01-20 10:23 | EKG ---
Test Date: 2019-01-18 Test Time: 19:01:34 Yarder Puncher: JIN MEASUREMENT RESULTS: Intervals: Rate: 113 WI: 136 QRSD: 80 QT: 304 QTc: 416 [place]: P: 66 WI: 136 QRS: 77 T: 68 INTERPRETIVE STATEMENTS: Sinus tachycardia Otherwise normal ECG Compared to ECG 11/05/2015 07:11:36 Sinus rhythm no longer present Electronically Signed On 01-20-19 10:23:49 CDT by Joni Grullon
--- NOTE | 2019-01-20 17:00 | P.PN ---
Subjective Date of Service: 01/20/19 Chief Complaint: Pyelonephritis with septic shock Subjective: No new changes, Ambulating, Improving, Working w/ PT, Doing well Review of Systems 10-point ROS is otherwise unremarkable Physical Examination - Vital Signs Temperature: 97 F Blood Pressure: 111/69 Pulse: 87 Respirations: 20 Pulse Ox (%): 96 - Physical Exam General: Alert, In no apparent distress HEENT: Atraumatic, PERRLA, EOMI Neck: Supple, JVD not distended Respiratory: Clear to auscultation bilaterally, Normal air movement Cardiovascular: Regular rate/rhythm, Normal S1 S2 Gastrointestinal: Normal bowel sounds, No tenderness Musculoskeletal: No tenderness Integumentary: No rashes Neurological: Normal speech, Normal tone, Normal affect Lymphatics: No axilla or inguinal lymphadenopathy - Studies Medications List Reviewed: Yes Assessment And Plan - Current Problems (Diagnosis) (1) Septic shock Current Visit: Yes Status: Resolved Plan: Septic shock now resolved most likely secondary to pyelonephritis. Now hemodynamically stable. Resolved -Blood Culture pending, Urine culture + for mixed ngoc. Concern and high suspicious for Ecoli -Switched to PO augmentin. If improving next 24hrs will DC home (2) Pyelonephritis Current Visit: Yes Status: Acute Plan: Patient with flank pain with abdominal CT consistent with pyelonephritis -UA concerning for UTI -currently on IV antibiotics will Switch to PO augmentin at this time -blood culture pending at this time -urine Culture with mixed ngoc - Plan Pending Clinical Improvement Discharge Plan: Home Plan to discharge in: Greater than 2 days - Code Status/Comfort Care Code Status Assessed: Yes Critical Care: No
[2019-01-20] MEDS ORDERED: ACETAMIN/CAFFEINE/BUTALB TAB PO ONE (21:09)
[2019-01-20] MEDS: AMOX/K CLAV 875 MG TAB PO SCH (22:02)
[2019-01-21 06:07] LABS: Phosphorus 3.5 mg/dL (2.5-4.9)
[2019-01-21] MEDS: AMOX/K CLAV 875 MG TAB PO SCH (08:43)
--- NOTE | 2019-01-21 15:36 | P.DS ---
Admission Date: 01/18/19 Discharge Date: 01/21/19 Disposition: ROUTINE DISCHARGE Discharge Condition: GOOD Reason for Admission: Pyelonephritis with septic shock - Problems (1) Septic shock Status: Resolved (2) Pyelonephritis Status: Acute Brief History of Present Illness: Patient is a 58-year-old female came into the hospital with flank tenderness. Patient has been feeling well for the last 2-3 days. Her symptoms have gradually worsened. She was having generalized weakness along with fever of 103 that she measured at home. Patient has some nausea and vomiting as well. Patient complained of myalgias and anorexia. Patient does state that she has had some dysuria and polyuria. Patient came into the ER for further evaluation. In the emergency room patients workup was fairly unremarkable. Her urin analysis was not significant for pyuria. Patient did have bacteriuria. Patient's CT scan revealed pyelonephritis. Patient was hypotensive in the emergency room with blood pressure of 70s over 40s. When I came to see the patient, her blood pressure was 80s over 50s. Patient was tachycardic. Will continue fluid boluses and treatment for septic shock. Patient will be admitted to the ICU. If patient's headache continues patient may need further neurologic workup as well. Hospital Course: Overall during the hospital stay patient remained stable Patient was initially admitted to the hospital for septic shock most likely secondary to pyelonephritis secondary to UTI. Patient was initially admitted to the ICU had fluid resuscitation and was hemodynamically stable and thus was transferred to the regular floor. Blood culture urine culture were collected in the ER and patient was started on IV fluids and IV antibiotics at that time as well. Patient was monitored here in the hospital for next 24-48 hr. Urine culture was negative for any growth blood culture was negative for any acute growth as well. At that time patient was discharged home on Augmentin for pyelonephritis and was asked to follow up with primary care provider in about 1- 2 days post discharge. Patient demonstrate understanding and thus was discharged home under stable condition. Vital Signs/Physical Exam: Temp Pulse Resp BP Pulse Ox 97.7 F 83 18 123/72 97 01/21/19 08:00 01/21/19 08:00 01/21/19 08:00 01/21/19 08:00 01/21/19 08:00 General: Alert, In no apparent distress HEENT: Atraumatic, PERRLA, EOMI Neck: Supple, JVD not distended Respiratory: Clear to auscultation bilaterally, Normal air movement Cardiovascular: Regular rate/rhythm, Normal S1 S2 Gastrointestinal: Normal bowel sounds, No tenderness Musculoskeletal: No tenderness Integumentary: No rashes Neurological: Normal speech, Normal tone, Normal affect Lymphatics: No axilla or inguinal lymphadenopathy Laboratory Data at Discharge: WBC 13.2 K/uL (4.3-10.9) H D 01/19/19 05:31 Hgb 11.5 g/dL (12.0-15.0) L D 01/19/19 05:31 Hct 33.9 % (36.0-45.0) L D 01/19/19 05:31 Plt Count 138 K/uL (152-406) L D 01/19/19 05:31 PT 14.4 SECONDS (9.5-12.5) H 01/18/19 18:48 INR 1.23 01/18/19 18:48 APTT 28.9 SECONDS (24.3-36.9) 01/18/19 18:48 Sodium 143 mmol/L (136-145) 01/21/19 05:31 Potassium 4.0 mmol/L (3.5-5.1) 01/21/19 05:31 BUN 9 mg/dL (7-18) 01/21/19 05:31 Creatinine 0.71 mg/dL (0.55-1.3) 01/21/19 05:31 Glucose 94 mg/dL (74-106) 01/21/19 05:31 Phosphorus 3.5 mg/dL (2.5-4.9) D 01/21/19 05:31 Magnesium 2.2 mg/dL (1.8-2.4) 01/19/19 18:55 Total Bilirubin 0.9 mg/dL (0.2-1.0) 01/19/19 05:31 AST 12 U/L (15-37) L 01/19/19 05:31 ALT 23 U/L (12-78) 01/19/19 05:31 Alkaline Phosphatase 52 U/L (45-117) 01/19/19 05:31 Home Medications: Glucosamine Sulfate 1,000 mg PO BID 01/19/19 Meloxicam 15 mg PO PRN PRN 01/19/19 Amox/Clavulanate [Augmentin 875-125 Tab*] 875 mg PO BID #14 tab 01/21/19 New Medications: Amox/Clavulanate [Augmentin 875-125 Tab*] 875 mg PO BID #14 tab Diet: Regular Activity: Ad tim
== END 2019-01-21 12:27 | disposition home or self-care (01) | DRG 871 ==
LOC: ER 18:19 → ERHOLD 21:55 → 3RD-ICU 23:11 → 2ND 01-19 11:12
PROVIDERS: ADMIT Hospitalist; ATTEND Family Medicine
DX: A41.9 Sepsis, unspecified organism (principal); R65.21 Severe sepsis with septic shock; N10 Acute pyelonephritis; F17.210 Nicotine dependence, cigarettes, uncomplicated
CPT/HCPCS: 36415; 51702; 71045; 74177; 80048; 80053; 80076; 81003; 81015; 82962; 83605; 83735; 84100; 84132; 84145; 84484; 85025; 85610; 85730; 87040; 87077; 87086; 87088; 87186; 87804; 93005; 94640; 96365; 96375; 99285; J0696; J1650; J2405; J3475; J7030; Q9967

== ENCOUNTER 2019-04-18 09:51 | Emergency (ER) | payer OTHER ==
[2019-04-18] MEDS ORDERED: ACETAMINOPHEN 325 MG TABLET ONE (10:53)
[2019-04-18] MEDS ORDERED: ONDANSETRON 4 MG/2 ML VIAL ONE (10:53)
[2019-04-18] MEDS ORDERED: NA CHLORIDE 0.9% 1,000 ML ONE (10:54)
[2019-04-18 11:03] LABS: Absolute Lymphocytes (CBC) 1.4 K/uL (0.7-4.9); Basophils % 0.7 % (0-1.3); Lymphocytes % 11.4 % (15.3-44.8); MPV 8.4 fL (7.6-11.3); RBC Red Blood Cell Count 4.33 M/uL (3.86-4.86)
[2019-04-18 11:21] LABS: Albumin 3.9 g/dL (3.4-5.0); Bilirubin Direct 0.2 mg/dL (0-0.2); Bilirubin Total 1.2 mg/dL (0.2-1.0); Potassium 3.9 mmol/L (3.5-5.1); Protein, Total 7.7 g/dL (6.4-8.2)
[2019-04-18 11:35] LABS: Urine Bacteria 20-50 /HPF (<20); Urine Culture Reflex Order REFLEXED; Urine RBC >50 /HPF (NONE SEEN)
[2019-04-18 11:46] LABS: Urine Blood 3+ (NEG); Urine Glucose NEGATIVE (NEG); Urine Protein 3+ (NEG); Urine Specific Gravity 1.025 (1.005-1.030); Urine pH 7.5 (5.0-7.0)
--- NOTE | 2019-04-18 12:03 | RAD REPORT ---
EXAM DESCRIPTION: CTAbdomen Pelvis W Contrast - 04/18/2019 11:50 am CLINICAL HISTORY: Abdominal pain. Dysuria;Flank pain COMPARISON: Abdomen Pelvis W Contrast dated 01/18/2019; CT ABD PELVIS W CONTRAST dated 12/13/2012 TECHNIQUE: Biphasic CT imaging of the abdomen and pelvis was performed with 100 ml non-ionic IV cont rast. All CT scans are performed using dose optimization technique as appropriate and may include automated exposure control or mA/KV adjustment according to patient size. FINDINGS: Linear subsegmental atelectasis is present in both lung bases. A small fundal gastric dive rticulum. The liver, spleen, pancreas, adrenal glands and left kidney are within normal limits. Urinary bladder wall thickening is seen along with enhancement of the right ureter uro epithelium extending to the l evel of the right kidney. Subtle perinephric fat stranding inferior right kidney seen. The findings l ikely indicate ascending urinary tract infection with early changes of right-sided pyelonephritis. Th e right renal collecting system is also mildly prominent. An obstructing calculus is not seen. No bowel obstruction, free air, free fluid or abscess. Sigmoid diverticulosis is present without dive rticulitis. The appendix is normal. No evidence of significant lymphadenopathy. No suspicious bony findings. IMPRESSION: Ascending right-sided urinary tract infection is present with early findings of right-si ded pyelonephritis suspected. Right renal collecting system is also mildly dilated without evidence o f obstructing stone.
[2019-04-18] MEDS ORDERED: CEFTRIAXONE/SWI 1gm 1 GM/10 ML SYR ONE (12:19)
--- NOTE | 2019-04-18 12:56 | ER ---
Nurse's Notes [facility] Name: Evita Shelley Age: 59 yrs Sex: Female : 1960 Arrival Date: 04/18/2019 Time: 09:53 Bed 6 Private MD: Jemma Camarena K Diagnosis: Urinary tract infection, site not specified Presentation: 04/18 10:05 Presenting complaint: Patient states: R flank pain, nausea and burning with urination ss that began yesterday evening. Transition of care: patient was not received from another setting of care. 10:05 Method Of Arrival: Ambulatory ss 10:05 Acuity: KIP 3 ss 10:06 Onset of symptoms was April 17, 2019. Risk Assessment: Do you want to hurt yourself ss or someone else? Patient reports no desire to harm self or others. Initial Sepsis Screen: Does the patient meet any 2 criteria? No. Patient's initial sepsis screen is negative. Does the patient have a suspected source of infection? Yes: Dysuria/Frequency/Urgency/UTI. Care prior to arrival: None. Historical: - Allergies: 10:07 No Known Allergies; ss - PSHx: 10:07 lumpectomy - right; ss - Immunization history:: Adult Immunizations up to date. - Social history:: Smoking status: Patient/guardian denies using tobacco. - Ebola Screening: : Patient denies exposure to infectious person Patient denies travel to an Ebola-affected area in the 21 days before illness onset. Screenin:06 Abuse screen: Denies threats or abuse. Denies injuries from another. Nutritional ph screening: No deficits noted. Tuberculosis screening: No symptoms or risk factors identified. Fall Risk None identified. Assessment: 11:04 General: Appears in no apparent distress. comfortable, well groomed, Behavior is calm, ph cooperative, appropriate for age, Denies fever. Pain: Complains of pain in suprapubic area and right low back. Neuro: Level of Consciousness is awake, alert, obeys commands, Oriented to person, place, time, situation. Cardiovascular: Capillary refill < 3 seconds in bilateral fingers Patient's skin is warm and dry. Respiratory: Airway is patent Respiratory effort is even, unlabored, Respiratory pattern is regular, symmetrical. GI: Reports lower abdominal pain, nausea, vomiting. : Reports burning with urination, pain in right in suprapubic area in lower back with urination, urinary frequency. Derm: Skin is intact, Skin is pink, warm \T\ dry. Musculoskeletal: Circulation, motion, and sensation intact. Range of motion: intact in all extremities. 11:41 Reassessment: Patient appears in no apparent distress at this time. Patient and/or ph family updated on plan of care and expected duration. Pain level reassessed. Patient is alert, oriented x 3, equal unlabored respirations, skin warm/dry/pink. Pt taken to CT via wheelchair. Vital Signs: 10:07 BP 118 / 83; Pulse 93; Resp 15; Temp 97.9(TE); Pulse Ox 98% on R/A; Weight 95.25 kg; ss Height 5 ft. 7 in. (170.18 cm); Pain 7/10; 11:06 BP 112 / 78; Pulse 91; Resp 18; Pulse Ox 99% on R/A; ph 11:41 BP 121 / 79; Pulse 89; Resp 18; Pulse Ox 100% on R/A; ph 13:00 BP 143 / 93; Pulse 81; Resp 18; Pulse Ox 99% on R/A; hb 13:00 BP 114 / 83; Pulse 76; Resp 16; Temp 97.8; Pulse Ox 99% on R/A; hb 10:07 Body Mass Index 32.89 (95.25 kg, 170.18 cm) ED Course: 09:53 Patient arrived in ED. as 09:54 Jemma Camarena MD is Private Physician. as 09:57 [facility] pm1 09:58 Harish Diggs MD is Attending Physician. pm1 10:06 Triage completed. ss 10:07 Arm band placed on right wrist. ss 10:23 Erika Eng RN is Primary Nurse. ph 10:40 Initial lab(s) drawn, by me, sent to lab. Urine collected: clean catch specimen, ph cloudy. Inserted saline lock: 20 gauge in left antecubital area, using aseptic technique. Blood collected. 11:06 Patient has correct armband on for positive identification. Placed in gown. Bed in low ph position. Call light in reach. Side rails up X 1. Pulse ox on. NIBP on. Door closed. Noise minimized. Lights dimmed. Warm blanket given. Pillow given. Head of bed lowered. 11:50 CT completed. Patient tolerated procedure well. Patient moved to CT. Patient moved back nj from CT. 11:51 CT Abd/Pelvis - IV Contrast Only In Process Unspecified. EDMS 12:45 No provider procedures requiring assistance completed. ph 13:32 IV discontinued, intact, bleeding controlled, No redness/swelling at site. Pressure ph dressing applied. Administered Medications: 11:03 Drug: NS 0.9% 1000 ml Route: IV; Rate: 1000 ml; Site: left antecubital; ph 12:44 Follow up: Response: No adverse reaction; IV Status: Completed infusion; IV Intake: ph 1000ml 11:03 Drug: Zofran 4 mg Route: IVP; Site: left antecubital; ph 12:43 Follow up: Response: No adverse reaction ph 11:03 Drug: Tylenol 650 mg Route: PO; ph 12:44 Follow up: Response: No adverse reaction ph 12:35 Drug: Rocephin 1 grams Route: IV; Rate: calculated rate; Site: left antecubital; ph 12:44 Follow up: Response: No adverse reaction; IV Status: Completed infusion ph 13:10 Drug: Cipro 500 mg Route: PO; ph 13:31 Follow up: Response: No adverse reaction ph 13:10 Drug: morphine 4 mg Route: IVP; Site: left antecubital; ph 13:31 Follow up: Response: No adverse reaction; Pain is decreased ph Intake: 12:44 IV: 1000ml; Total: 1000ml. ph Outcome: 12:55 Discharge ordered by MD. pm1 13:31 Discharged to home ambulatory, with significant other. ph 13:31 Condition: good 13:31 Discharge instructions given to patient, Instructed on discharge instructions, follow up and referral plans. medication usage, Demonstrated understanding of instructions, follow-up care, medications, Prescriptions given X 3. 13:34 Patient left the ED. ph Addendum: 04/21/2019 07:14 Addendum: Culture Results: Positive urine culture. No further action required. Bacteria i w sensitive to prescribed antibiotic. Signatures: Dispatcher [employer] EDMS Simi Woo Irene, RN RN Geno Daily RN RN Erika Eng RN RN Sd Fleming, CONCRETE FLOOR INSTALLER CONCRETE FLOOR INSTALLER pm1 Anamaria Mendoza, RN RN Sidney Rodriguez
--- NOTE | 2019-04-18 12:56 | EDPHYS ---
Physician Documentation [facility] Name: Evita Shelley Age: 59 yrs Sex: Female : 1960 Arrival Date: 04/18/2019 Time: 09:53 Bed 6 Private MD: Jemma Camarena K ED Physician Harish Diggs HPI: 04/18 10:35 This 59 yrs old Female presents to ER via Ambulatory with complaints of pm1 Nausea, Back Pain, Dysuria. 10:35 The patient presents with flank pain, on the right, urinary symptoms, frequency, pm1 burning with urination. Onset: The symptoms/episode began/occurred last night. Modifying factors: The symptoms are alleviated by nothing, the symptoms are aggravated by urinating. Associated signs and symptoms: Pertinent positives: nausea, Pertinent negatives: fever, vomiting, Abdominal pain. Severity of symptoms: in the emergency department the symptoms are actually worse. The patient has experienced a previous episode, approximately 3 months ago, symptoms similar but not as bad. Historical: - Allergies: 10:07 No Known Allergies; ss - PSHx: 10:07 lumpectomy - right; ss - Immunization history:: Adult Immunizations up to date. - Social history:: Smoking status: Patient/guardian denies using tobacco. - Ebola Screening: : Patient denies exposure to infectious person Patient denies travel to an Ebola-affected area in the 21 days before illness onset. ROS: 10:35 Positive for flank pain, urinary frequency, burning with urination. pm1 10:35 Constitutional: Negative for fever, chills, and weight loss, Eyes: Negative for injury, pain, redness, and discharge, ENT: Negative for injury, pain, and discharge, Neck: Negative for injury, pain, and swelling, Cardiovascular: Negative for chest pain, palpitations, and edema, Respiratory: Negative for shortness of breath, cough, wheezing, and pleuritic chest pain. 10:35 Back: Negative for injury and pain, MS/Extremity: Negative for injury and deformity, Skin: Negative for injury, rash, and discoloration. 10:35 Abdomen/GI: Positive for nausea, Negative for abdominal pain, vomiting, diarrhea, constipation. 10:35 Neuro: Positive for headache, Negative for altered mental status, dizziness, numbness, tingling, weakness. Exam: 10:35 Constitutional: This is a well developed, well nourished patient who is awake, alert, pm1 and in no acute distress. Head/Face: Normocephalic, atraumatic. Eyes: Pupils equal round and reactive to light, extra-ocular motions intact. Lids and lashes normal. Conjunctiva and sclera are non-icteric and not injected. Cornea within normal limits. Periorbital areas with no swelling, redness, or edema. ENT: Nares patent. No nasal discharge, no septal abnormalities noted. Tympanic membranes are normal and external auditory canals are clear. Oropharynx with no redness, swelling, or masses, exudates, or evidence of obstruction, uvula midline. Mucous membranes moist. Neck: Trachea midline, no thyromegaly or masses palpated, and no cervical lymphadenopathy. Supple, full range of motion without nuchal rigidity, or vertebral point tenderness. No Meningismus. Chest/axilla: Normal chest wall appearance and motion. Nontender with no deformity. No lesions are appreciated. Cardiovascular: Regular rate and rhythm with a normal S1 and S2. No gallops, murmurs, or rubs. Normal PMI, no JVD. No pulse deficits. Respiratory: Lungs have equal breath sounds bilaterally, clear to auscultation and percussion. No rales, rhonchi or wheezes noted. No increased work of breathing, no retractions or nasal flaring. Abdomen/GI: Soft, non-tender, with normal bowel sounds. No distension or tympany. No guarding or rebound. No evidence of tenderness throughout. 10:35 Skin: Warm, dry with normal turgor. Normal color with no rashes, no lesions, and no evidence of cellulitis. MS/ Extremity: Pulses equal, no cyanosis. Neurovascular intact. Full, normal range of motion. 10:35 Back: normal spinal alignment noted, CVA tenderness, that is mild, is noted on the right, vertebral tenderness, is not appreciated. 10:35 Neuro: Orientation: is normal, Motor: is normal, moves all fours. Vital Signs: 10:07 BP 118 / 83; Pulse 93; Resp 15; Temp 97.9(TE); Pulse Ox 98% on R/A; Weight 95.25 kg; ss Height 5 ft. 7 in. (170.18 cm); Pain 7/10; 11:06 BP 112 / 78; Pulse 91; Resp 18; Pulse Ox 99% on R/A; ph 11:41 BP 121 / 79; Pulse 89; Resp 18; Pulse Ox 100% on R/A; ph 13:00 BP 143 / 93; Pulse 81; Resp 18; Pulse Ox 99% on R/A; hb 13:00 BP 114 / 83; Pulse 76; Resp 16; Temp 97.8; Pulse Ox 99% on R/A; hb 10:07 Body Mass Index 32.89 (95.25 kg, 170.18 cm) ss MDM: 10:00 Patient medically screened. pm1 12:08 Data reviewed: vital signs. Data interpreted: Pulse oximetry: on room air is 100 %. pm1 Interpretation: normal. 12:54 Counseling: I had a detailed discussion with the patient and/or guardian regarding: the pm1 historical points, exam findings, and any diagnostic results supporting the discharge/admit diagnosis, lab results, radiology results, the need for outpatient follow up, to return to the emergency department if symptoms worsen or persist or if there are any questions or concerns that arise at home. 04/18 10:22 Order name: Basic Metabolic Panel; Complete Time: 11:24 pm1 04/18 10:22 Order name: CBC with Diff; Complete Time: 11:24 pm1 04/18 10:22 Order name: Creatinine for Radiology; Complete Time: 11:24 pm1 04/18 10:22 Order name: Hepatic Function; Complete Time: 11:24 pm1 04/18 10:22 Order name: Lipase; Complete Time: 11:24 pm1 04/18 10:22 Order name: Procalcitonin; Complete Time: 11:59 pm1 04/18 10:22 Order name: Lactate; Complete Time: 11:24 pm1 04/18 10:22 Order name: CT Abd/Pelvis - IV Contrast Only; Complete Time: 12:06 pm1 04/18 10:22 Order name: Urine Microscopic Only; Complete Time: 11:42 pm1 04/18 10:51 Order name: Urine Dipstick--Ancillary (enter results); Complete Time: 11:51 eb 04/18 11:25 Order name: Urine Culture pm1 04/18 10:22 Order name: IV Saline Lock; Complete Time: 11:04 pm1 04/18 10:22 Order name: Labs collected and sent; Complete Time: 11:04 pm1 04/18 10:22 Order name: Urine Dipstick-Ancillary (obtain specimen); Complete Time: 11:03 pm1 Administered Medications: 11:03 Drug: NS 0.9% 1000 ml Route: IV; Rate: 1000 ml; Site: left antecubital; ph 12:44 Follow up: Response: No adverse reaction; IV Status: Completed infusion; IV Intake: ph 1000ml 11:03 Drug: Zofran 4 mg Route: IVP; Site: left antecubital; ph 12:43 Follow up: Response: No adverse reaction ph 11:03 Drug: Tylenol 650 mg Route: PO; ph 12:44 Follow up: Response: No adverse reaction ph 12:35 Drug: Rocephin 1 grams Route: IV; Rate: calculated rate; Site: left antecubital; ph 12:44 Follow up: Response: No adverse reaction; IV Status: Completed infusion ph 13:10 Drug: Cipro 500 mg Route: PO; ph 13:31 Follow up: Response: No adverse reaction ph 13:10 Drug: morphine 4 mg Route: IVP; Site: left antecubital; ph 13:31 Follow up: Response: No adverse reaction; Pain is decreased ph Disposition: 04/18/19 12:55 Discharged to Home. Impression: Urinary tract infection, site not specified. - Condition is Stable. - Discharge Instructions: Pyelonephritis, Adult, Urinary Tract Infection, Adult. - Prescriptions for Tylenol- Codeine #3 300-30 mg Oral Tablet - take 2 tablets by ORAL route every 6 hours As needed; 20 tablet. Zofran 4 mg Oral Tablet - take 1 tablet by ORAL route every 8 hours As needed; 20 tablet. Cipro 500 mg Oral Tablet - take 1 tablet by ORAL route every 12 hours for 7 days; 14 tablet. - Work release form, Medication Reconciliation Form, Thank You Letter, Antibiotic Education, Prescription Opioid Use form. - Follow up: Emergency Department; When: As needed; Reason: Worsening of condition. Follow up: Private Physician; When: 2 - 3 days; Reason: Recheck today's complaints, Continuance of care, Re-evaluation by your physician. - Problem is new. - Symptoms have improved. Addendum: 04/19/2019 15:07 Co-signature as Attending Physician, Harish Diggs MD. g s Signatures: Dispatcher [employer] EDSD Geno Daily RN RN ss Erika Eng RN RN ph Sd Fleming, GLOBE MOUNTER GLOBE MOUNTER pm1 Harish Diggs MD MD Corrections: (The following items were deleted from the chart) 04/18 13:34 12:55 04/18/2019 12:55 Discharged to Home. Impression: Urinary tract infection, site ph not specified. Condition is Stable. Forms are Medication Reconciliation Form, Thank You Letter, Antibiotic Education, Prescription Opioid Use. Follow up: Emergency Department; When: As needed; Reason: Worsening of condition. Follow up: Private Physician; When: 2 - 3 days; Reason: Recheck today's complaints, Continuance of care, Re-evaluation by your physician. Problem is new. Symptoms have improved. pm1
[2019-04-18] MEDS ORDERED: MORPHINE 4 MG/ML SYR ONE (12:59)
[2019-04-18] MEDS ORDERED: CIPROFLOXACIN HCL 500 MG TAB ONE (12:59)
[2019-04-18 13:50] VITALS: BP 114/83; TEMP 97.8; O2SAT 99
== END 2019-04-18 13:34 | disposition home or self-care (01) ==
LOC: ER 09:51
DX: N39.0 Urinary tract infection, site not specified (principal)
CPT/HCPCS: 96361; 87088; 85025; 87086; 80048; 36415; 80076; 83605; 87077; 87186; 83690; 84145; 74177; 96375; 96374; 99284; Q9967; J0696; J7030; J2405; 81003; 81015